=== PATIENT | male | born 1940 | race Two or more races ===

== ENCOUNTER 2024-01-02 14:56 | Emergency (ER) | payer OTHER ==
[~2024-01-02] VITALS: Ht 167.6 cm; Wt 86.2 kg
[2024-01-02] MEDS ORDERED: ENALAPRIL M1 MG/1 ML PO (15:28)
[2024-01-02] MEDS ORDERED: DILANTIN30 MG PO (15:28)
[2024-01-02] MEDS ORDERED: LEXAPRO5 MG PO (15:28)
[2024-01-02] MEDS ORDERED: PLAVIX75 MG (15:29)
[2024-01-02] MEDS ORDERED: ACID REDUCER20 M1 (15:29)
[2024-01-02] MEDS ORDERED: LIPITOR40 M1 PO (15:29)
[2024-01-02] MEDS ORDERED: ATORVASTATIN CA10 MG PO (15:29)
== END 2024-01-02 21:45 | disposition home or self-care (01) ==
LOC: ER 14:56
DX: S09.8XXA Other specified injuries of head, initial encounter (principal); W19.XXXA Unspecified fall, initial encounter; Y93.89 Activity, other specified; Y92.89 Other specified places as the place of occurrence of the external cause; Y99.8 Other external cause status; M25.50 Pain in unspecified joint